=== PATIENT | female | born 1975 | race Two or more races ===

== ENCOUNTER 2024-03-03 08:34 | Outpatient (AMB) | payer OTHER, BC, SELFPAY ==
[2024-03-03 08:50] VITALS: BP 136/81; PULSE 80; RESP 19; TEMP 35.3; O2SAT 96; BMI 58.6
--- NOTE | 2024-03-03 08:50 | ORTHONT_ITS ---
Vital signs 03/03/24 08:50 Height 1.68 m Height Method Stated Weight 165.59 kg Weight Measurement Method Standing Scale BMI 58.6 BP 136/81 H Blood Pressure Source Automatic Cuff Blood Pressure Location Left Upper Arm Position Sitting Respiration 19 Pulse 80 Pulse Source Monitor Temp 95.6 F L Temp Source Temporal Artery Scan Pulse Oximetry (%) 96 Oxygen Delivery Method Room Air Med/Allergies Allergies & Medications Allergies morphine Allergy (Severe, Verified 03/03/24 08:50) Anaphylaxis Medication Reconciliation cholecalciferol (vitamin D3) 10 mcg (400 unit) capsule 10 mcg PO QDAY 01/16/24 [History Confirmed 03/03/24] meloxicam 15 mg tablet 15 mg PO QDAY #10 tabs 01/16/24 [Rx Confirmed 03/03/24] meloxicam 7.5 mg tablet 7.5 mg PO QDAY #45 tabs 02/13/24 [Rx Confirmed 03/03/24] meloxicam 7.5 mg tablet 7.5 mg PO QDAY #45 tabs 02/13/24 [Rx Confirmed 03/03/24] celecoxib 200 mg capsule 200 mg PO BID #60 caps 03/03/24 [Rx] Subjective Visit Visit for: follow up visit and knee (LEFT) Immunization / Flu Flu Vaccine in the Last 12 Months: No Flu Vaccine Exclusion Criteria: No Exclusion Criteria History of Present Illness Chief complaint: LEFT KNEE OA F/U Patient is a 48-year-old female who comes in today with left knee pain has been going on for about 1 to 2 months. Patient was at [facility] on or around November or December of this year when she ambulated far too much which led to severe pain of her left knee. After the pain occurred she was seen in the [facility] ER. She obtained X-rays and was treated with Toradol and Tylenol and then discharged home. After the ER visit, she was off work for about a month when she tried to get an appointment with physical therapy but had no luck. Since being seen for the pain, she took an anti-inflammatory medication from [place] called Krish and has tried various medications prescribed by her primary care doctor but has not provided any relief. Her pain has been intermittent intermittent so some days is better than others. Whenever she gets the pain she gets associated swelling to her left ankle knee and ankle especially with walking and standing too much. The last time she got swelling was this past weekend when she was in a long car ride. She has had no injections in the past. She also obtained an MRI subsequently a week after her ER visit in [place]. She also obtain x-rays of her ankle at [facility] but has not been able to access the results yet. She reports the meloxicam is not working that well and would like to try different medication. She is still trying to lose weight Personal History Hobbies: walking Red flag PMH: none Pain Pain level (0-10): 7 Pain duration: CONSTANT Pain location: inside (medial), outside (lateral), anterior and posterior Pain quality: aching and burning Pain timing: night, increases with activity and stairs Associated signs & symptoms: weakness and stiffness Ambulatory data Ambulatory device: none Treatments Improvement with previous injections: No Improvement with PT: No Improvement with NSAIDS: no Review of Systems Review of Systems: All systems negative unless otherwise noted in HPI. Exam Exam Patient is in no acute distress and is cooperative with the examination today. Breathing is nonlabored. Patient has a normal mood and affect. Bilateral extremities were evaluated and demonstrates sensation intact to light touch. Palpable pedal pulses are present. No significant edema is present. Bilateral hips were examined. The patient has no pain with log roll of the hips. Internal rotation to 30 degrees and external rotation to 30 degrees is painless. Negative FADIR. Right knee was examined today. The right knee is in reasonable alignment. Range of motion from 0-120 degrees. Knee is stable to varus and valgus as well as AP translation with <5mm. Patient has a negative McMurrays. There is no pain with patellofemoral compression and no crepitus noted. The knee is nontender to palpation. Left knee was examined today. The left knee is in varus alignment. Range of motion from 0-115 degrees. Knee is stable to varus and valgus as well as AP translation with <5mm. Patient has a negative McMurrays. There is no pain with patellofemoral compression and no crepitus noted. The knee is tender to palpation medially. Patient has significant left knee arthritis. Assessment and Plan Problem List (1) Arthritis of left knee: Status: Acute Plan: Patient is a 48-year-old female with an exacerbation of her left knee arthritis. The x-rays show that it is [id number]. We discussed nonoperative treatment including injections, anti-inflammatories and weight loss. She would like an anti-inflammatory for now. She is actually set up for weight loss surgery. I do think this will be very beneficial for her as she will need weight reduction in order to preserved her knee and if she were to get a total knee replacement in the future. I do think thather weight is a significant contributor to her arthritis and her pain And that she would benefit from bariatric surgery. We recommend weight loss and anti-inflammatories. Will see her in 3 months for an injection. Office Procedures GNS Level of Care Nursing/Assessment Patient Status: Established Patient Nursing Assessment/Reassesment: Medication Reconciliation, Update PMH in EMR and Vital Signs Coordination of Care: Complex Care and Chronic Disease 1-5, Education Complex Pt/Fam, Consent,records obtained, informed consent, Results/Orders obtained and Staff clarify orders Established Patient Charge Established Patient Point Assignment: 95 Established Patient Point Charge: EP Level 3 (80-115) Past Medical History Past Medical History Have you ever been diagnosed with any of the following: Respiratory Problems Smoking: No Smoking Cessation Counseling: No Smoking Exposure: No Tobacco Use: No Clubbing: No
== END 2024-03-03 08:59 | disposition home or self-care (01) ==
PROVIDERS: PCP Nurse Practitioner; Referring Provider Nurse Practitioner; Supervising Provider Orthopaedic Surgery Adult Reconstructive Orthopaedic Surgery; Visit Provider Orthopaedic Surgery Adult Reconstructive Orthopaedic Surgery
DX: M17.12 Unilateral primary osteoarthritis, left knee (principal)
CPT/HCPCS: 99213; G0463

== ENCOUNTER 2024-06-23 08:55 | Outpatient (AMB) | payer OTHER, BC, SELFPAY ==
[2024-06-23 09:02] VITALS: BP 163/93; PULSE 66; RESP 18; TEMP 36.8; O2SAT 93; BMI 59.4
--- NOTE | 2024-06-23 09:02 | ORTHONT_ITS ---
Vital signs 06/23/24 09:02 Height 1.68 m Height Method Stated Weight 167.829 kg Weight Measurement Method Standing Scale BMI 59.4 BP 163/93 H Blood Pressure Source Automatic Cuff Blood Pressure Location Right Upper Arm Position Sitting Respiration 18 Pulse 66 Pulse Source Monitor Temp 98.2 F Temp Source Temporal Artery Scan Pulse Oximetry (%) 93 L Oxygen Delivery Method Room Air Med/Allergies Allergies & Medications Allergies morphine Allergy (Severe, Verified 06/23/24 09:03) Anaphylaxis Medication Reconciliation cholecalciferol (vitamin D3) 10 mcg (400 unit) capsule 10 mcg PO QDAY 01/16/24 [History Confirmed 06/23/24] meloxicam 15 mg tablet 15 mg PO QDAY #10 tabs 01/16/24 [Rx Confirmed 06/23/24] meloxicam 7.5 mg tablet 7.5 mg PO QDAY #45 tabs 02/13/24 [Rx Confirmed 06/23/24] meloxicam 7.5 mg tablet 7.5 mg PO QDAY #45 tabs 02/13/24 [Rx Confirmed 06/23/24] celecoxib 200 mg capsule 200 mg PO BID #60 caps 03/03/24 [Rx Confirmed 06/23/24] Exam Exam Patient is in no acute distress and is cooperative with the examination today. Breathing is nonlabored. Patient has a normal mood and affect. Bilateral extremities were evaluated and demonstrates sensation intact to light touch. Palpable pedal pulses are present. No significant edema is present. Bilateral hips were examined. The patient has no pain with log roll of the hips. Internal rotation to 30 degrees and external rotation to 30 degrees is painless. Negative FADIR. Right knee was examined today. The right knee is in reasonable alignment. Range of motion from 0-120 degrees. Knee is stable to varus and valgus as well as AP translation with <5mm. Patient has a negative McMurrays. There is no pain with patellofemoral compression and no crepitus noted. The knee is nontender to palpation. Left knee was examined today. The left knee is in varus alignment. Range of motion from 0-115 degrees. Knee is stable to varus and valgus as well as AP translation with <5mm. Patient has a negative McMurrays. There is no pain with patellofemoral compression and no crepitus noted. The knee is tender to palpation medially. Patient has significant left knee arthritis. Assessment and Plan Problem List (1) Arthritis of left knee: Status: Acute Plan: Patient is a 48-year-old female with an exacerbation of her left knee arthritis. The x-rays show that it is [id number]. We discussed nonoperative treatment including injections, anti-inflammatories and weight loss. She would like an anti-inflammatory for now. She is actually set up for weight loss surgery. I do think this will be very beneficial for her as she will need weight reduction in order to preserved her knee and if she were to get a total knee replacement in the future. I do think thather weight is a significant contributor to her arthritis and her pain And that she would benefit from bariatric surgery. We recommend weight loss and anti-inflammatories. Will see her in 3 months for an injection. Office Procedures GNS Level of Care Nursing/Assessment Patient Status: Established Patient Nursing Assessment/Reassesment: Medication Reconciliation, Update PMH in EMR and Vital Signs Coordination of Care: Complex Care and Chronic Disease 1-5, Education Complex Pt/Fam, Consent,records obtained, informed consent, Results/Orders obtained and Staff clarify orders Established Patient Charge Established Patient Point Assignment: 95 Established Patient Point Charge: EP Level 3 (80-115) Surgical Proc/IM SQ injection Major Surgical Procedure: Yes (KNEE INJECTION) Medication Given Medication Given Medication Given: Yes Documented Dose Given: 4 Route: Infiitration Medication Given Medication Given Medication Given: Yes Documented Dose Given: 1 Route: Infiitration Office Meds Xylocaine 10 mg/mL (1 %) injection solution Performing Provider: Jeremiah Drake MD Performing Location: [facility] Administered by: Jeremiah Drake MD on 06/23/24 09:30 Dose Route Admin Location Dispensed Lot Number Expiration Date [facility] Business Asst 20 mL Infiltration 20 mL [id number] 10/06/27 32522-652-35 [facility] triamcinolone acetonide 40 mg/mL suspension for injection Performing Provider: Jeremiah Drake MD Performing Location: [facility] Administered by: Jeremiah Drake MD on 06/23/24 09:30 Dose Route Admin Location Dispensed Lot Number Expiration Date [facility] Business Asst 40 mg intra-articular KNEE 1 mL [id number] 02/04/26 1056-2334-62 [facility] Intake Visit Data Collection New Patient or Established: Established Patient (seen at [facility] within 3 years) Reason for Visit:: LEFT KNEE INJECTION Seen by Clinical Staff ONLY (RN/MA): No Verbal consent obtained for Telemed visit?: No Mathematics Department Chair Required: No PCP or OBGYN visit in last 3 months: Yes Hx Now: No Do You Feel Safe at Home: Yes Authorities Contacted: N/A Questionairres Past Medical History Past Medical History Have you ever been diagnosed with any of the following: Respiratory Problems Smoking: No Smoking Cessation Counseling: No Smoking Exposure: No Tobacco Use: No Clubbing: No Subjective Visit Visit for: follow up visit and knee Immunization / Flu Flu Vaccine in the Last 12 Months: No Flu Vaccine Exclusion Criteria: No Exclusion Criteria History of Present Illness Chief complaint: left knee Shweta is a pleasant 48-year-old female with a left knee pain and left knee arthritis. He is morbidly obese and has tried to lose weight. She is try to get set up with bariatric surgery. Her last injection only lasted about 4 weeks. She would like another 1 today as she reports the pain is miserable Pain Pain level (0-10): 9 Pain duration: ALL DAY Pain location: inside (medial), outside (lateral), anterior and posterior Pain quality: sharp, dull, aching, burning, shocking, electric and tingling Pain timing: increases with activity Associated signs & symptoms: weakness Ambulatory data Ambulatory device: cane Review of Systems Review of Systems: All systems negative unless otherwise noted in HPI.
== END 2024-06-23 09:20 | disposition home or self-care (01) ==
PROVIDERS: PCP Nurse Practitioner; Referring Provider Nurse Practitioner; Supervising Provider Orthopaedic Surgery Adult Reconstructive Orthopaedic Surgery; Visit Provider Orthopaedic Surgery Adult Reconstructive Orthopaedic Surgery
DX: M17.12 Unilateral primary osteoarthritis, left knee (principal); M25.562 Pain in left knee; E66.01 Morbid (severe) obesity due to excess calories; Z68.43 Body mass index [BMI] 50.0-59.9, adult
CPT/HCPCS: 20610; 99213; J3301; J3490; G0463

== ENCOUNTER 2025-03-27 00:51 | Emergency (ER) | payer OTHER, BC, SELFPAY ==
[2025-03-27 00:51] VITALS: BMI 45.1
[2025-03-27 01:06] VITALS: BP 151/92; PULSE 72; RESP 24; TEMP 36.6; O2SAT 100
--- NOTE | 2025-03-27 01:18 | XR_ITS ---
Examination: Abdomen sonogram, Limited Date and time of exam: March 27, 2025, 0.54 hours INDICATION: Onset right upper abdominal pain beginning 3 hours ago Technique: Real-time veliz scale transabdominal sonographic images of the upper abdomen obtained. Findings: Multiple gallstones Gallbladder wall 0.40 cm with possible trace edema Common bile duct 0.4 cm Pancreatic head 2.7 cm Liver 16.8 cm fatty infiltration Normal hepatopetal portal venous flow Patent IVC IMPRESSION: Cholelithiasis Consider MRCP or HIDA scan follow-up to exclude cholecystitis
--- NOTE | 2025-03-27 01:18 | PD.EDRME ---
Rapid Medical Screening Exam E Arrival date/time: 03/27/25 00:51 49F with history of DM and bariatric surgery presents to ED with several hours of RUQ/epigastric pain and N/V. There is also some R flank pain, but patient denies dysuria/hematuria. Chief Complaint: Abdominal Pain Vital signs: Vital Signs Temperature 97.8 F 03/27/25 01:06 Pulse Rate 72 03/27/25 01:06 Respiratory Rate 24 H 03/27/25 01:06 Blood Pressure 151/92 H 03/27/25 01:06 Pulse Oximetry (%) 100 03/27/25 01:06 Oxygen Delivery Method Room Air 03/27/25 01:06 Exam: RUQ/epigastric tenderness. Mild R CVA tenderness. Clinical Impression: Biliary disease vs pancreatitis vs gastritis vs kidney stone vs UTI/pyelo vs SBO
[2025-03-27] MEDS: ONDANSETRON ODT 4 MG TABRAP PO (01:28)
[2025-03-27 01:39] LABS: Basophils # (Auto) 0.0 Thou/mm3 (0.0-0.2); Basophils % (Auto) 0 % (0-2.5); Eosinophils # (Auto) 0.1 Thou/mm3 (0.0-0.5); Eosinophils % (Auto) 1 % (0-10); Hematocrit 35.1 % (36.0-46.0); Hemoglobin 11.2 g/dL (12.0-16.0); Immature Granulocytes Auto 0.03 Thou/mm3 (0.00-0.00); Lymphocytes # (Auto) 2.5 Thou/mm3 (1.0-4.8); Lymphocytes % (Auto) 23 % (10-50); Mean Corpuscular HGB Conc 31.9 g/dl (31.0-37.0); Mean Corpuscular Hemoglobin 27.5 pg (25.0-35.0); Mean Corpuscular Volume 86 fL (80-100); Monocytes # (Auto) 0.4 Thou/mm3 (0.0-0.8); Monocytes % (Auto) 4 % (0-12); Neutrophils # (Auto) 7.9 Thou/mm3 (1.8-7.7); Neutrophils % (Auto) 72 % (37-80); Nucleated Red Blood Cell # 0.00 Thou/mm3 (0.00-0.00); Nucleated Red Blood Cell % 0 /100 WBC (0); Platelet Count 238 Thou/mm3 (140-440); RDW Standard Deviation 46.3 fL (36.4-46.3); Red Blood Count 4.08 Miln/mm3 (4.00-5.20); White Blood Count 11.0 Thou/mm3 (3.6-11.0)
--- NOTE | 2025-03-27 01:48 | EDNOTE_ITS ---
ED Abdominal Pain RME/HPI General Chief Complaint: Abdominal Pain Stated complaint: MID UPPER ABD PAIN/FLANK PAIN Time seen by provider: 03/27/25 01:19 Arrival date/time: 03/27/25 00:51 RME / HPI RME / HPI narrative: 03/27/25 00:51 49F with history of DM and bariatric surgery presents to ED with several hours of RUQ/epigastric pain and N/V. There is also some R flank pain, but patient denies dysuria/hematuria. DR. MANCILLA MAIN ED EVALUATION: 49 y/o female with SHx of Gastric Sleeve presents to ED c/o epigastric and RUQ abdominal pain with associated vomiting x 2 hours. Reports BL mid-back pain 2 days ago. Also reports similar symptoms approximately 1 month ago for which she took Pepto Bismol with relief of symptoms. Denies any prior gallbladder issues. Patient believes it may be related to spicy food of which she rarely consumes. No other complaints. Exam: RUQ/epigastric tenderness. Mild R CVA tenderness. Impression: Biliary disease vs pancreatitis vs gastritis vs kidney stone vs UTI/pyelo vs SBO Related Data Home Medications ?Medication ?Instructions ?Recorded ?Confirmed cholecalciferol (vitamin D3) 10 10 mcg PO QDAY 4 06/23/24 mcg (400 unit) capsule Previous Rx's ?Medication ?Instructions ?Recorded meloxicam 15 mg tablet 15 mg PO QDAY #10 tabs 01/15 meloxicam 7.5 mg tablet 7.5 mg PO QDAY #45 tabs 110 10/29 meloxicam 7.5 mg tablet 7.5 mg PO QDAY #45 tabs 11/0 10/29 celecoxib 200 mg capsule 200 mg PO BID #60 caps 03/03 dicyclomine 20 mg tablet 20 mg PO QID PRN abdominal p ain 03/27/25 #20 tabs ondansetron 4 mg disintegrating 4 mg PO Q6H PRN nausea and 03/27/25 tablet vomiting #20 tabs Allergies Allergy/AdvReac Type Severity Reaction Status Date / Time morphine Allergy Severe Anaphylaxis Verified 06/23/24 09:03 Review of Systems Review of Systems Systems Reviewed: All systems reviewed, normal except as documented ED Exam Narrative Physical exam: Generally patient is alert obese but no obvious distress, heart regular rate and rhythm, lungs clear to auscultation equal bilaterally, abdomen soft bowel sounds present nondistended epigastric and right upper quadrant abdominal tenderness without rebound or Gray sign, skin is warm pale and dry, neurologic exam [place] Coma Scale of 15 without focal motor deficit Course Quality Measures none Orders Category Date Time Status US gall bladder Stat Exams 03/27/25 01:18 Taken Beta HCG,Quantitative Stat Lab 03/27/25 01:24 Completed CBC Stat Lab 03/27/25 01:24 Completed CMP [Comprehensive Metabolic Panel] Stat Lab 03/27/25 01:24 Completed Drug Screen,Urine Stat Lab 03/27/25 02:32 Ordered HCG Qualitative,Urine Stat Lab 03/27/25 02:32 Ordered Lipase Stat Lab 03/27/25 01:24 Completed Urinalysis, C/S if Indicated Stat Lab 03/27/25 02:32 Ordered Ondansetron Odt [Zofran Odt] Med 03/27/25 01:18 Discontinued 4 mg PO X1 ONE Vital Signs Vital signs: Vital Signs Temperature 97.8 F 03/27/25 01:06 Pulse Rate 72 03/27/25 01:06 Respiratory Rate 24 H 03/27/25 01:06 Blood Pressure 151/92 H 03/27/25 01:06 Pulse Oximetry (%) 100 03/27/25 01:06 Oxygen Delivery Method Room Air 03/27/25 01:06 Abdominal Pain MDM MDM Narrative MDM Narrative:: Scribe Attestation: IChiqui am scribing for and in the presence of Dr. Mancilla. Provider Notation: Although this document has been carefully reviewed, there may still be some phonetic and other typographical errors. These errors are purely grammatical due to imperfections in the software program and should not be construed in any way to compromise the substance of the patient's medical care during this visit. I interpreted all labs. There is no leukocytosis. LFTs showed a normal bilirubin slightly elevated AST and alkaline phosphatase. Lipase is normal. Gallbladder ultrasound showed stones to be present with the gallbladder wall only for millimeters in the common bile duct only 4 mm. There was no Dinesh cholecystic fluid. Clinically the patient does not have cholecystitis. There is no evidence of pancreatitis. Patient is pain-free at the time of my evaluation. Patient will be discharged on Zofran and Bentyl to be taken as prescribed. I discussed with the patient of dietary restrictions. Patient understands. She does have primary care follow-up. Patient data External records reviewed:: [facility] previous records (No recent ED records available for review.) Clinical information provided by:: patient Social determinants that could affect healthcare access:: none Patient has the following chronic illnesses:: Obesity How is presenting disease/condition affected by chronic disease/condition?: exacerbated by Evaluation data The following diagnostics were reviewed and interpreted by me:: lab results and radiology exam(s) Lab and/or radiology exams considered but not ordered:: None Interpretation Summary: RADIOLOGY Gallbladder US: Pending official radiology report. Medications / Prescriptions Medications or Prescriptions considered but not ordered:: None Medication administrations:: Medication Administration History Discontinued Medications Ondansetron HCl (Ondansetron Odt 4 Mg Tabrap) 4 mg PO X1 ONE; Protocol Stop: 03/27/25 01:19 Last Admin: 03/27/25 01:28 Dose: 4 mg Documented By: JENNIFER See above if any. Consultations Consultation(s) initiated? (list below): No Diagnosis Differential diagnosis abdominal pain: abdominal pain, calculus of kidney, pancreatitis and other (Cholecystitis, Cholelithiasis) Most likely diagnosis given after review of the tests above:: none Admission Indicated Admission indicated?: not indicated Admission Request Was there a request for admission?: No Disposition Plan Disposition Plan: Discharge Discharge Attestation Discharge Attestation: The patient and all family members were given an opportunity to ask questions and understood the discharge instructions. Discharge instructions specifically effects, indications for sooner follow up or return to the emergency department, and the expected course of current diagnosis. Patient condition: Stable Discharge Plan Plan Patient Disposition: HOME (Self Care) Prescriptions/Referrals Prescriptions/Med Rec: New dicyclomine 20 mg tablet 20 mg PO QID PRN (Reason: abdominal pain) Qty: 20 0RF ondansetron 4 mg tablet,disintegrating 4 mg PO Q6H PRN (Reason: nausea and vomiting) Qty: 20 0RF No Action cholecalciferol (vitamin D3) 10 mcg (400 unit) capsule 10 mcg PO QDAY meloxicam 15 mg tablet 15 mg PO QDAY Qty: 10 0RF celecoxib 200 mg capsule 200 mg PO BID Qty: 60 0RF meloxicam 7.5 mg tablet 7.5 mg PO QDAY Qty: 45 3RF meloxicam 7.5 mg tablet 7.5 mg PO QDAY Qty: 45 3RF Referrals: Janet Bowen, [facility] [Primary Care Provider] - In 1 week Problem List Clinical Impression: Cholelithiasis Patient/Caregiver Discharge Instructions Education Materials: ED Gallstones with Biliary Colic Additional Instructions: Medications as prescribed. Avoid hot spicy greasy fatty foods. Follow-up with your doctor. Return to ER as needed or if condition worsens. Print Language: Macedonian Stand Alone Forms: [employer] Award Info., Patient Portal Info Letter
[2025-03-27 01:57] LABS: Alanine Aminotransferase 35 U/L (10-49); Albumin, Serum 4.6 gm/dL (3.5-5.0); Albumin/Globulin Ratio 1.4 (1.2-2.2); Alkaline Phosphatase 144 U/L (46-116); Anion Gap 10 (7-16); Aspartate Amino Transferase 83 U/L (0-34); BUN/Creatinine Ratio 20 Ratio (12-20); Bilirubin,Total 0.5 mg/dL (0.3-1.2); Blood Urea Nitrogen 12 mg/dL (9-23); Calcium 9.9 mg/dL (8.3-10.6); Calcium (Corrected) 9.9 mg/dL (8.5-10.1); Carbon Dioxide 26.3 mMol/L (20.0-31.0); Chloride 103 mMol/L (98-107); Creatinine (Component) 0.6 mg/dL (0.6-1.3); Estimated Creatinine Clearance 154.7 mL/min (>60); Globulin 3.2 gm/dL (2.3-3.5); Glucose 130 mg/dL (74-106); Lipase 31 U/L (12-53); Osmolality,Calculated 279 (275-295); Potassium 4.1 mMol/L (3.4-5.1); Sodium 139 mMol/L (136-145); Total Protein 7.8 gm/dL (5.7-8.2); eGFR > 60 See Note
[2025-03-27 02:07] LABS: Beta HCG,Quantitative 1 mIU/mL (<5.0)
[2025-03-27 03:04] VITALS: PULSE 78; RESP 19; TEMP 36.7; O2SAT 96
--- NOTE | 2025-03-27 03:18 | PRELIM_ITS ---
Gallbladder ultrasound with Doppler and wave Doppler spectral analysis. March 27, 2025 0154 hours Clinical history: RUQ/epigastric pain Comparison: None available at the time of this report. Findings: Hepatomegaly. The liver demonstrates increased echogenicity. Gallstones. Gallbladder wall thickening. No pericholecystic fluid is identified. The common duct is normal in caliber at 3.5 mm. No free fluid is demonstrated on the submitted images. The pancreas is within normal limits. The imaged portions of the right kidney are within normal limits. The portal vein is patent with hepatopetal flow and normal wave Doppler spectral analysis. The hepatic veins are patent. Gray sign is not available at the time of this report. Impression: Gallstones associated with gallbladder wall thickening, highly suspicious for acute calculous cholecystitis. Hepatomegaly associated with liver steatosis, suspicious for steatohepatitis. Report Electronically Signed By: Ata Wilkins 03/27/2025 3:17:38 AM [EST]
[2025-03-27 03:57] LABS: Collection Type, Urine Clean Catch
[2025-03-27 04:05] LABS: Bacteria,Urine Rare; Bilirubin,Urine Negative (Negative); Blood,Urine Negative (Negative); Clarity,Urine Clear (Clear/Hazy); Color,Urine Yellow (Lt Yel-Yel); Culture Indicated,Urine Not Indicated; Glucose, Urine Negative (Negative); Ketones,Urine Negative (Negative); Leukocyte Esterase,Urine Negative (Negative); Nitrite,Urine Negative (Negative); PH,Urine 7.0 (5.0-7.0); Protein,Urine Negative (Neg - Trace); RBC,Urine 2 /hpf (0-3); Specific Gravity,Urine 1.021 (1.001-1.035); Squamous Epithelial Cell,Urine 9 /hpf (0-5); Urobilinogen,Urine Negative mg/dL (0.0-1.0); WBC,Urine 1 /hpf (0-5)
[2025-03-27 04:06] LABS: Amphetamine/Methamp Scrn,U Negative (Negative); Barbiturate Screen,Urine Negative (Negative); Benzodiazepines Screen,Urine Negative (Negative); Benzoylecgonine Screen, Ur Negative (Negative); Fentanyl Screen,Urine Negative (Negative); Opiate Screen,Urine Negative (Negative); THC Screen,Urine Negative (Negative)
== END 2025-03-27 03:05 | disposition home or self-care (01) ==
PROVIDERS: Physician Assistant; Emergency Provider Emergency Medicine; PCP Nurse Practitioner Family
DX: K80.20 Calculus of gallbladder without cholecystitis without obstruction (principal)
CPT/HCPCS: 36415; 76705; 80053; 80307; 81001; 81025; 83690; 84702; 85025; 99283; Q0162